=== PATIENT | female | born 1980 | race Caucasian/White ===

== ENCOUNTER 2016-08-11 13:00 | Inpatient (IN) | payer OTHER ==
--- NOTE | ~2016-08-11 | DS ---
Unit #: [id number] #: [id number] Patient: KIRSTY TERRY [id number] [place] [address] [id number] MR#: [id number] NAME: KIRSTY TERRY ROOM: [facility] Age: 35 Sex: F Admission Date: 08/11/2016 : 1980 Discharge Date: 08/15/2016 Attending Physician: Aries Lester M.D. Primary Care Physician: Rusty Boswell M.D. DISCHARGE SUMMARY REASON FOR ADMISSION The patient is a 35-year-old white female, admitted to the [address] [place] [address] for opioid detox. HOSPITAL COURSE The patient was admitted to the [address] [place] [address] and placed on a routine detoxification protocol for opioids. Her stay in the hospital was uneventful, and her detox went smoothly, though her participation within the therapeutic milieu was less than optimal. By 08/15/2016, she was requesting discharge with a plan for followup take place through the auspices of the chemical dependence intensive outpatient program provided by this facility. As per her request, discharge was ordered. FINAL DIAGNOSES Opioid use disorder, sedative hypnotic use disorder, methamphetamine use disorder, and dysthymic disorder. DISPOSITION ON DISCHARGE The patient is discharged on no psychotropic or other medications. FOLLOWUP Follow up will take place through the auspices of the chemical dependency intensive outpatient program provided by this facility. PROGNOSIS The patient's prognosis is considered fair. Dictated by... Aries Lester M.D. CB/merel TD: 08/15/2016 15:09 JOB #: [id number] Unit #: [id number] #: [id number] Patient: KIRSTY TERRY DISCHARGE SUMMARY Page 1 of 1 X Aries Lester MD X DISCHARGE SUMMARY
--- NOTE | ~2016-08-11 | HP ---
Unit #: [id number] #: [id number] Patient: TEVIN TERRY [id number] [place] [address] [id number] MR#: [id number] NAME: TEVIN TERRY ROOM: P180 Age: 35 Sex: F Admission Date: 08/11/2016 : 1980 Attending Physician: Aries Lester M.D. Admitting Physician: Aries Lester M.D. Primary Care Physician: Rusty Boswell M.D. HISTORY AND PHYSICAL HISTORY OF PRESENT ILLNESS Tevin is a 35-year-old admitted to [facility] because of her continued illicit substance abuse. PAST MEDICAL HISTORY 1. Long history of illicit substance abuse to include IV drugs. 2. Hepatitis C. 3. History of withdrawal seizures. PAST SURGICAL HISTORY 1. x3. 2. Appendectomy. 3. Tubal ligation. ALLERGIES No known drug allergies. SOCIAL HISTORY Smokes one pack per day. Denies alcohol. Admits to long history of illicit substance abuse to include IV heroin. FAMILY HISTORY Medically noncontributory. REVIEW OF SYSTEMS CONSTITUTIONAL: No fever or chills. HEENT: Denies any sore throat, ear pain or runny nose. CARDIOVASCULAR: Denies chest pain, irregular heart rhythm or palpitations. CHEST: Denies shortness of breath or cough. No hemoptysis. GASTROINTESTINAL: Denies nausea, vomiting, diarrhea or chronic constipation. ENDOCRINE: Denies history of increased thirst or urination. No recent significant weight loss or gain. GENITOURINARY: Denies dysuria, frequency, or hematuria. SKIN: Denies any rashes. HEMATOLOGIC: Denies history of increased bleeding or bruising. MUSCULOSKELETAL: Denies any hot, swollen joints. No generalized muscle pain. NEUROLOGIC: Denies problems with vision or speech. No frequent, severe headaches. No numbness, tingling or weakness in any extremities. Denies loss of bladder or bowel control. CURRENT MEDICATIONS Unit #: [id number] #: [id number] Patient: TEVIN TERRY Detox protocol. PHYSICAL EXAMINATION GENERAL: Alert, well nourished. No apparent distress. VITAL SIGNS: Blood pressure 134/88, heart rate 80, respirations 16, and temperature 98.6. WEIGHT: 120. HEIGHT: 5 feet 2 inches. SKIN: Warm and dry without rash or lesion. HEENT: Normocephalic. TMs not viewed. Oral and nasal passages clear. Conjunctivae clear. PERRLA. EOMs intact. NECK: Supple without lymphadenopathy or thyromegaly. HEART: Regular rate and rhythm without murmur. LUNGS: Clear. ABDOMEN: Soft, nontender. : Not done. EXTREMITIES: No evidence of cyanosis, clubbing or edema. Moves all without focal deficit. NEUROLOGICAL: Grossly within normal limits. Cranial Nerves: II: Visual segovia are intact. III, IV AND : Extraocular movements are intact. Pupils are equal, round and reactive to light. V: Facial sensation is grossly normal. VII: Facial movements and expression are normal. VIII: Auditory acuity grossly intact. IX, X: Uvula is midline. Phonation is normal. XI: Patient shrugs shoulders and turns head normally. XII: Tongue protrudes in the midline. Sensory and Motor Function: Sensory and motor sensation is grossly normal. Motor: moves all extremities well. Coordination: Gait is normal. Deep Tendon Reflexes: Intact. IMPRESSION Psychiatric admission. RECOMMENDATIONS PSYCHIATRIC: Per psychiatrist. MEDICAL: I see no contraindication to participate in this facility's activities. MEDICAL PROGNOSIS Good. MEDICAL CONDITION Stable. Dictated by... Cheryl Berger, P.A.-C. for Salome Padron/ajay TD: 08/12/2016 12:35 JOB #: [id number] Unit #: [id number] #: [id number] Patient: TEVIN TERRY HISTORY AND PHYSICAL Page 1 of 1 X Cheryl Berger X HISTORY AND PHYSICAL
--- NOTE | ~2016-08-11 | PN ---
Unit #: [id number] #: [id number] Patient: KIRSTY TERRY [id number] [facility] [address] [place] [address] [id number] MR#: [id number] NAME: KIRSTY TERRY ROOM: 80 Age: 35 Sex: F Admission Date: 08/11/2016 : 1980 Attending Physician: Aries Lester M.D. Admitting Physician: Aries Lester M.D. Primary Care Physician: Salome Sheffield PROGRESS NOTES DATE 08/13/2016 DISCUSSION The patient continues to complain of significant symptoms of opioid withdrawal mainly musculoskeletal. I have encouraged her to avail herself with prescribed p.r.n.s and we continue current treatment. Dictated by... Aries eLster M.D. CB/kailee TD: 08/14/2016 06:19 JOB #: [id number] [facility] PROGRESS NOTES Page 1 of 1 X Aries Lester MD X PROGRESS NOTE
--- NOTE | ~2016-08-11 | PN ---
Unit #: [id number] #: [id number] Patient: KIRSTY TERRY [id number] [facility] [address] [place] [address] [id number] I MR#: [id number] NAME: KIRSTY TERRY ROOM: P180 Age: 35 Sex: F Admission Date: 08/11/2016 : 1980 Attending Physician: Aries Lester M.D. Admitting Physician: Aries Lester M.D. Primary Care Physician: Salome Sheffield PROGRESS NOTES DATE 08/14/2016 DISCUSSION The patient reports significant reduction in symptoms of withdrawal and is more active within the therapeutic milieu. She is expressing interest in the intensive outpatient program provided by this facility following her discharge which could take place within the next couple of days should the patient's progress continue. Dictated by... Aries Lester M.D. CB/ajay TD: 08/14/2016 14:19 JOB #: [id number] [facility] PROGRESS NOTES Page 1 of 1 X Aries Lester MD X PROGRESS NOTE
--- NOTE | ~2016-08-11 | PA ---
Unit #: [id number] #: [id number] Patient: KIRSTY TERRY [id number] [facility] [address] [place] [address] [id number] I MR#: [id number] NAME: KIRSTY TERRY ROOM: P180 Age: 35 Sex: F Admission Date: 08/11/2016 : 1980 Date of Assessment: 08/12/2016 Attending Physician: Aries Lester M.D. Admitting Physician: Aries Lester M.D. Primary Care Physician: Rusty Boswell M.D. PSYCHIATRIC ASSESSMENT IDENTIFYING INFORMATION The patient is a 35-year-old single female admitted to the [facility] with a history of opioid and methamphetamine abuse. CHIEF COMPLAINT Relapse. INFORMANT(S) Patient, reliability is fair. HISTORY OF PRESENT ILLNESS The patient is a 35-year-old white female with a history of previous treatment at this facility as well as the [facility]. She reports that she relapsed after 22 months of sobriety approximately 1 year ago and has been shooting heroin and methamphetamine. The patient reports she "does not live like this anymore" though she is denying active suicidal ideation. The patient has been at treatment in this facility in the past as well as the [facility]. She reports that she supports herself with a bentley at the "[employer]." She has insignificant physical distress during today's attempted interview. The patient actually was reporting suicidal ideation at the time of admission reporting a plan to overdose. For more complete history of present illness, please refer to previously dictated note. PAST PSYCHIATRIC HISTORY Reviewed, no changes. PAST MEDICAL HISTORY Reviewed, no changes. MEDICATIONS None. ALLERGIES None. FAMILY HISTORY Noncontributory. SOCIAL HISTORY Reviewed, no changes. MENTAL STATUS EXAMINATION Unit #: [id number] #: [id number] Patient: KIRSTY TERRY Examination at this time reveals the patient to be a thin, heavily tattooed white female appearing stated age. She appears to be in physical distress during evaluation. She is awake, alert, and oriented in all spheres. Her mood is dysphoric, her affect flat. Speech is generally well-coherent. There are no gross deficits in memory or cognition noted. Intelligence is judged to be in the average range based on fund of knowledge. The patient is cooperative during the interview. She is currently denying suicidal ideation but had done so at the time of admission. She does continue to report hopelessness. Her judgment and insight appear to be significantly impaired. ASSETS AND LIABILITIES The patient's assets: Motivation for change. Liabilities: Lack of resources. DIAGNOSTIC IMPRESSION 1. Opioid use disorder. 2. Sedative hypnotic use disorder. 3. Methamphetamine use disorder. 4. Dysthymic disorder. TREATMENT PLAN The patient remains hospitalized for safety and stabilization. Given the threats made at the time of admission, suicide precautions are in place. Routine detoxification protocols are in place for opioids and sedative hypnotics. The patient will participate in appropriate order of milieu activities. ESTIMATED LENGTH OF STAY 5 to 7 days. Dictated by... Aries Lester M.D. CHUCK/ajay TD: 08/12/2016 16:00 JOB #: [id number] PSYCHIATRIC ASSESSMENT Page 1 of 1 X Aries Lester MD X PSYCHIATRIC ASSESSMENT
[~2016-08-11 13:00] MED LIST: AMOXICILLIN PO; AVELOX400 MG PO; BACITRACIN30 GM TOP; CIPRO PO; DOXYCYCLINE PO; FLEXERIL; IBUPROFEN; IBUPROFEN600 MG PO; KLONOPIN; KLONOPIN PO; MOBIC PO; NO MEDICATIONS; PERCOCET PO; PHENERGAN PO; POLYSPORIN15 GM TOP; PRENATAL1 TA1 PO; PROTONIX PO; PYRIDIUM PO; ROBAXIN500 MG PO; ROBITUSSIN DM PO; TRAMADOL HCL50 M2 PO; ULTRAM; ULTRAM PO; VOLTAREN75 MG PO
[2016-08-12 09:50] LABS: BASOPHIL% 0.3 % (0-2.5); EOSINOPHIL# 0.1 X10e3 (0-0.7); EOSINOPHIL% 1.9 % (0.0-7.0); HEMATOCRIT 35.9 % (35.0-45.0); HEMOGLOBIN 11.9 gm/dL (12.0-16.0); LYMPHOCYTE% 47.6 % (17.0-45.0); MEAN CELL VOLUME 84.8 FL (83-96); MEAN CORPUSCULAR HEMOGLOBIN 28.1 PG (28-34); MEAN CORPUSCULAR HGB CONC 33.1 g/dL (30-36); MEAN PLATELET VOLUME 8.2 FL (6.5-11.5); MONOCYTE# 0.4 X10e3 (0-1.0); MONOCYTE% 8.9 % (3.0-12.0); NEUTROPHIL# 1.7 X10e3 (1.5-7.1); NEUTROPHIL% 41.3 % (40-75); PLATELET COUNT 181 X10e3 (140-420); RED BLOOD COUNT 4.23 X10e (3.90-5.30); WHITE BLOOD COUNT 4.2 X10e3 (4.0-10.5)
[2016-08-12 10:00] LABS: DIFF IND NO
[2016-08-12 10:18] LABS: ALBUMIN SERUM 3.4 g/dL (3.5-5.0); BILIRUBIN,TOTAL 0.3 mg/dL (0.2-2.0); BUN/CREATININE RATIO 18.33; CALCIUM SERUM 8.5 mg/dL (8.4-10.2); CREATININE SERUM 0.6 mg/dL (0.6-1.4); GLOM FILT RATE Estimated 118.1 mL/min (>60); POTASSIUM 4.3 mmol/L (3.5-5.1); PROTEIN TOTAL SERUM 5.8 g/dL (6.0-8.3)
[2016-08-15 11:52] LABS: URINE APPEARANCE CLEAR; URINE BILIRUBIN NEG (NEG); URINE BLOOD NEG (NEG); URINE COLOR YELLOW; URINE GLUCOSE NEG (NEG); URINE KETONE NEG (NEG); URINE LEUKOCYTE ESTERASE NEG (NEG); URINE NITRATE NEG (NEG); URINE PH 7.5 (5-8); URINE PROTEIN NEG (NEG); URINE SPECIFIC GRAVITY 1.015 (1.003-1.035)
[2016-08-15 12:12] LABS: AMPHETAMINE POS (NEG); BARBITURATES NEG (NEG); BENZODIAZEPINES POS (NEG); COCAINE NEG (NEG); MARIJUANA NEG (NEG); OPIATES NEG (NEG); TRICYCLIC ANTIDEPRESSANTS NEG (NEG); U METHADONE NEG (NEG)
[2016-08-17 15:30] LABS: HA AB IGM (HEPPAN) Nonreactive (()); HB CORE AB IGM (HEPPAN) Nonreactive (Nonreactive); HB S AG (HEPPAN) Nonreactive (Nonreactive); HEP C AB (HEPPAN) Reactive (Nonreactive)
== END 2016-08-15 13:06 | disposition home or self-care (01) | DRG 897 ==
LOC: P1E 15:19
PROVIDERS: Specialist
PROC: HZ2ZZZZ Detoxification Services for Substance Abuse Treatment (ICD-10-PCS; principal; 2016-08-12)
DX: F11.10 Opioid abuse, uncomplicated (principal); F13.10 Sedative, hypnotic or anxiolytic abuse, uncomplicated; F15.10 Other stimulant abuse, uncomplicated; F34.1 Dysthymic disorder
CPT/HCPCS: 80053; 80074; 80307; 81003; 82947; 84703; 85025; 86592; 87522; 87806

== ENCOUNTER 2016-10-11 23:00 | Inpatient (IN) | payer OTHER ==
[~2016-10-11] VITALS: Ht 157.5 cm; Wt 54.4 kg
--- NOTE | ~2016-10-11 | PN ---
Unit #: [id number] #: [id number] Patient: KIRSTY TERRY [id number] [facility] [address] [place] [address] [id number] MR#: [id number] NAME: KIRSTY TERRY ROOM: P207 Age: 35 Sex: F Admission Date: 10/12/2016 : 1980 Attending Physician: Aries Lester M.D. Admitting Physician: Aries Lester M.D. Primary Care Physician: Salome Sheffield PROGRESS NOTES DATE 10/13/2016 DISCUSSION The patient is resting comfortably today. She continues to complain of significant symptoms of opioid withdrawal. We continue current treatment and are formulating the patient's post-discharge plan. Dictated by... Aries Lester M.D. CB/ajay TD: 10/13/2016 14:12 JOB #: [id number] [facility] PROGRESS NOTES Page 1 of 1 X Aries Lester MD X PROGRESS NOTE
--- NOTE | ~2016-10-11 | PN ---
Unit #: [id number] #: [id number] Patient: KIRSTY TERRY [id number] [facility] [address] [place] [address] [id number] MR#: [id number] NAME: KIRSTY TERRY ROOM: P207 Age: 35 Sex: F Admission Date: 10/12/2016 : 1980 Attending Physician: Aries Lester M.D. Admitting Physician: Aries Lester M.D. Primary Care Physician: Salome Sheffield PROGRESS NOTES DATE 10/14/2016 DISCUSSION The patient is abed today but appears to be in less physical discomfort related to opioid withdrawal. She is interested in a.m. discharge with followup to take place in the intensive outpatient program. Dictated by... Aries Lester M.D. CB/ajay TD: 10/14/2016 14:28 JOB #: [id number] [facility] PROGRESS NOTES Page 1 of 1 X Aries Lester MD X PROGRESS NOTE
--- NOTE | ~2016-10-11 | HP ---
Unit #: [id number] #: [id number] Patient: TEVIN TERRY [id number] [place] [address] [id number] I MR#: [id number] NAME: TEVIN TERRY ROOM: P207 Age: 35 Sex: F Admission Date: 10/12/2016 : 1980 Attending Physician: Aries Lester M.D. Admitting Physician: Aries Lester M.D. Primary Care Physician: Rusty Boswell M.D. HISTORY AND PHYSICAL HISTORY OF PRESENT ILLNESS Tevin is a 35-year-old female admitted on 10/12/[address] [place] [address] for detox for heroin. PAST MEDICAL HISTORY Hepatitis C. PAST SURGICAL HISTORY 1. Bilateral tubal ligation. 2. section x1. ALLERGIES None. SOCIAL HISTORY Smokes 1/2 pack of cigarettes daily. Denies alcohol use. Does report daily use of heroin. She is currently single and living with her boyfriend. FAMILY HISTORY Noncontributory. REVIEW OF SYSTEMS CONSTITUTIONAL: No fever or chills. HEENT: Denies any sore throat, ear pain or runny nose. CARDIOVASCULAR: Denies chest pain, irregular heart rhythm or palpitations. CHEST: Denies shortness of breath or cough. No hemoptysis. GASTROINTESTINAL: Denies nausea, vomiting, diarrhea or chronic constipation. ENDOCRINE: Denies history of increased thirst or urination. No recent significant weight loss or gain. GENITOURINARY: Denies dysuria, frequency, or hematuria. SKIN: Denies any rashes. HEMATOLOGIC: Denies history of increased bleeding or bruising. MUSCULOSKELETAL: Denies any hot, swollen joints. No generalized muscle pain. NEUROLOGIC: Denies problems with vision or speech. No frequent, severe headaches. No numbness, tingling or weakness in any extremities. Denies loss of bladder or bowel control. CURRENT MEDICATIONS None. PHYSICAL EXAMINATION Unit #: [id number] #: [id number] Patient: TEVIN TERRY GENERAL: Alert, oriented, in no acute distress. VITAL SIGNS: Blood pressure 109/74, heart rate 64, respirations 17, temperature 99.6. HEIGHT: 5 feet 4. WEIGHT: 110 pounds. SKIN: Warm and dry without rash or lesion. HEENT: Normocephalic. TMs not viewed. Oral and nasal passages clear. Conjunctivae clear. PERRLA. EOMs intact. NECK: Supple without lymphadenopathy or thyromegaly. HEART: Regular rate and rhythm without murmur. LUNGS: Clear. ABDOMEN: Soft, nontender, without masses or hepatosplenomegaly. : Not done. EXTREMITIES: No evidence of cyanosis, clubbing or edema. Moves all without focal deficit. NEUROLOGICAL: Grossly within normal limits. Cranial Nerves: II: Visual segovia are intact. III, IV AND : Extraocular movements are intact. Pupils are equal, round and reactive to light. V: Facial sensation is grossly normal. VII: Facial movements and expression are normal. VIII: Auditory acuity grossly intact. IX, X: Uvula is midline. Phonation is normal. XI: Patient shrugs shoulders and turns head normally. XII: Tongue protrudes in the midline. Sensory and Motor Function: Sensory and motor sensation is grossly normal. Motor: moves all extremities well. Coordination: Gait is normal. Deep Tendon Reflexes: Intact. IMPRESSION 1. Psychiatric admission. 2. Hepatitis C. RECOMMENDATIONS PSYCHIATRIC: Per psychiatrist. MEDICAL: No contraindication to participate in facility's activities. MEDICAL PROGNOSIS Good. MEDICAL CONDITION Stable. Dictated by... Nathanael Patel/tramaine TD: 10/12/2016 19:43 JOB #: [id number] Unit #: [id number] #: [id number] Patient: TEVIN TERRY HISTORY AND PHYSICAL Page 1 of 1 X AGGIE AMAYA APRN X HISTORY AND PHYSICAL
--- NOTE | ~2016-10-11 | PA ---
Unit #: [id number] #: [id number] Patient: KIRSTY TERRY [id number] [facility] [address] [place] [address] [id number] MR#: [id number] NAME: KIRSTY TERRY ROOM: P207 Age: 35 Sex: F Admission Date: 10/12/2016 : 1980 Date of Assessment: 10/12/2016 Attending Physician: Aries Lester M.D. Admitting Physician: rAies Lester M.D. Primary Care Physician: Rusty Boswell M.D. PSYCHIATRIC ASSESSMENT IDENTIFYING INFORMATION The patient is a 35-year-old white female admitted with a recent relapse of alcohol and sedative hypnotic abuse. The patient also reports to abuse of heroin and Suboxone. CHIEF COMPLAINT None given. INFORMANT Patient, reliability is fair. HISTORY OF PRESENT ILLNESS The patient is a 35-year-old white female who was admitted to the [address] [place] [address] as she presented to this facility experiencing withdrawal. The patient had apparently been taking Suboxone but had "run out." The patient also reported that she had used a gram of heroin yesterday and ingested the Xanax. She had also drank a pint of liquor. The patient had been in the [facility] earlier this summer but had been discharged after multiple absences. When seen today, the patient appears to be in significant physical distress related to opioid withdrawal. She is currently reporting no suicidal or homicidal ideation. For more complete history of present illness, please refer to previously dictated notes. PAST PSYCHIATRIC HISTORY Reviewed, no changes. PAST MEDICAL HISTORY Reviewed, no changes. MEDICATIONS None. ALLERGIES None reported. FAMILY HISTORY Reviewed, no changes. SOCIAL HISTORY Reviewed, no changes. MENTAL STATUS EXAMINATION Examination at this time reveals the patient to be a well-developed Unit #: [id number] #: [id number] Patient: KIRSTY TERRY well-nourished white female appearing her stated age. She appears to be in significant physical distress related to opioid withdrawal. She was awake, alert, and oriented in all spheres. Her mood is dysphoric, her affect constricted. Speech is generally well-coherent. There are no gross deficits in memory or cognition noted. Intelligence is judged to be in the average range based on fund of knowledge. The patient is cooperative throughout the interview. She denies current suicidal or homicidal ideation or psychotic features. Judgment and insight appear to be intact. ASSETS AND LIABILITIES The patient's assets: Motivation for change. Liabilities: Lack of resources, ongoing substance use. DIAGNOSTIC IMPRESSION 1. Opioid use disorder. 2. Methamphetamine use disorder. 3. Alcohol use disorder. 4. Sedative hypnotic use disorder. 5. Dysthymic disorder. TREATMENT PLAN The patient remains hospitalized for safety and stabilization. Routine detoxification protocol for opioids has been initiated. I have spoken with the patient regarding possible initiation of residential treatment as she had failed the intensive outpatient program, but she does not seem to be expressing much interest in that treatment course at this point and has expressed interest in reinitiation of the intensive outpatient program. ESTIMATED LENGTH OF STAY 3 to 5 days. Dictated by... Aries Lester M.D. Daryl TD: 10/12/2016 13:23 JOB #: [id number] PSYCHIATRIC ASSESSMENT Page 1 of 1 X Aries Lester MD X PSYCHIATRIC ASSESSMENT
--- NOTE | ~2016-10-11 | DS ---
Unit #: [id number] #: [id number] Patient: KIRSTY TERRY [id number] [facility] [address] [place] [address] [id number] MR#: [id number] NAME: KIRSTY TERRY ROOM: P20 Age: 35 Sex: F Admission Date: 10/12/2016 : 1980 Discharge Date: 10/15/2016 Attending Physician: Aries Lester M.D. Primary Care Physician: Rusty Boswell M.D. DISCHARGE SUMMARY REASON FOR ADMISSION The patient is a 35-year-old, white female admitted to the [address] [place] [address] with recent relapse of alcohol, sedative hypnotic abuse as well as abuse of heroin and Suboxone. HOSPITAL COURSE Patient was admitted to the [address] [place] [address] and placed on routine detoxification protocol for opioids and sedative hypnotics. Beta HCG was negative. The patient remained in some physical discomfort through much of her stay in the hospital thus limiting her participation within the therapeutic milieu. By 10/15, the patient was in brighter spirits and exhibited no signs of symptoms of withdrawal. She requested discharge on that date and was agreeable with plan for followup in the intensive outpatient program provided by this facility. As per her request, discharge was ordered. FINAL DIAGNOSES 1. Opioid use disorder. 2. Alcohol use disorder. 3. Sedative hypnotic use disorder. DISPOSITION On discharge, the patient is discharged on no psychotropic or other medications. FOLLOWUP Will take place through the auspices of the intensive outpatient program provided by this facility. PROGNOSIS Patient's prognosis is considered fair. Dictated by... Aries Lester M.D. CB/opal TD: 10/16/2016 12:48 JOB #: [id number] Unit #: [id number] #: [id number] Patient: KIRSTY TERRY DISCHARGE SUMMARY Page 1 of 1 X Aries Lester MD X DISCHARGE SUMMARY
== END 2016-10-15 16:23 | DRG 897 ==
LOC: P2S 10-12 04:38
PROC: HZ2ZZZZ Detoxification Services for Substance Abuse Treatment (ICD-10-PCS; principal; 2016-10-12)
DX: F11.23 Opioid dependence with withdrawal (principal); F10.10 Alcohol abuse, uncomplicated; F13.10 Sedative, hypnotic or anxiolytic abuse, uncomplicated; F15.10 Other stimulant abuse, uncomplicated; F34.1 Dysthymic disorder
CPT/HCPCS: 84703